=== PATIENT | female | born 1990 | race Two or more races ===

== ENCOUNTER 2024-02-02 12:18 | Emergency (ER) | payer MEDICAID, SELFPAY ==
--- NOTE | 2024-02-02 12:28 | EDNOTE_ITS ---
ED Head Injury RME/HPI General Chief complaint: Head Injury Stated complaint: hit left side of head on metal hook 10 minutes ago Time Seen by Provider: 02/02/24 12:21 Arrival date/time: 02/02/24 12:18 RME / HPI RME / HPI Narrative: This section includes all my notes and documentations, including HPI, PE, and ED course. Moy Eckert MD HPI: 33-year-old female here to be evaluated with head injury at home just prior to arrival. Occurred in the bathroom. When getting up from a bending position, she hit her head on the corner of a towel rack. No loss of consciousness. No headache other than pain around the injured area. No loss of consciousness. No dizziness. No nausea or vomiting. No decreased mental status. No unusual malaise or fatigue. No speech or visual impairment. No loss of power in the arms or legs. No other complaints. ROS: All negative except as documented in HPI. Physical Exam: General: Alert and oriented. No acute distress. HEENT: In the left parietal area, there is a quarter sized hematoma. Conjunctivae and lids clear. EOMI. PERRL. Patent airway. Tympanic membrane normal bilaterally. Neck: Supple. No tenderness. Lungs: No respiratory distress. Chest: No tenderness. Abdomen: Soft and nontender. Back: No tenderness. Skin: Warm and dry. Neuro: Alert and oriented X 3. Cranial Nerves II-XII grossly intact. No peripheral motor deficits. Musculoskeletal: All major joints and bones are not tender with no limited ROM. Discussed potential risks and benefits and alternatives to head CT. Patient declined head CT. Recommended supportive care and expectant management. Based on my best medical judgment, made decision no further evaluation or treatment indicated at this time. Patient understands and agrees to the discharge instructions customized and printed, see below. Discharge instructions from Dr. Eckert: 1. To make sure there is no brain injury, we need head CT. But since you declined, it was not ordered. 2. For the scalp contusion/hematoma (collection of ruptured blood vessels), apply ice for 20 minutes every 2-3 hours today and tomorrow. 3. Ibuprofen and Tylenol as needed. Try to rest, both your brain and physically, for 3 days. 4. See a private doctor on 02/05/2024 for recheck and repeat exam. 5. Seek immediate medical care with severe and persistent headache, persistent vomiting, being extremely drowsy when you should be completely alert and awake, or with any concerns. Moy Eckert MD Related Data Previous Rx's ?Medication ?Instructions ?Recorded acetaminophen 650 mg 650 mg PO Q8H PRN fever or pain 07/23/19 tablet,extended release #30 tabs ibuprofen 600 mg tablet 600 mg PO Q8H PRN fever or pain 07/23/19 #30 tabs aluminum-mag hydroxide-simethicone 10 ml PO QID PRN indigestion 02/06/20 200 mg-200 mg-20 mg/5 mL oral susp #3,000 mL (Maalox Advanced) Allergies Allergy/AdvReac Type Severity Reaction Status Date / Time No Known Allergies Allergy Verified 02/02/24 12:19 Course Quality Measures none Vital Signs Vital signs: Vital Signs Temperature 98.2 F 02/02/24 12:29 Pulse Rate 77 02/02/24 12:29 Respiratory Rate 17 02/02/24 12:29 Blood Pressure 144/84 H 02/02/24 12:29 Pulse Oximetry (%) 98 02/02/24 12:29 Oxygen Delivery Method Room Air 02/02/24 12:29 Head Injury Patient data External records reviewed:: [facility] previous records Clinical information provided by:: patient Social determinants that could affect healthcare access:: none Patient has the following chronic illnesses:: None How is presenting disease/condition affected by chronic disease/condition?: no chronic disease Evaluation data The following diagnostics were reviewed and interpreted by me:: other (specify) (No diagnostic tests ordered) Lab and/or radiology exams considered but not ordered:: None Interpretation Summary: No diagnostic tests ordered Medications / Prescriptions Medications or Prescriptions considered but not ordered:: None Medication administrations:: None Consultations Consultation(s) initiated? (list below): No Diagnosis Differential diagnosis head injury: concussion without loss of consciousness, closed head injury and other (Scalp hematoma) Most likely diagnosis given after review of the tests above:: Scalp hematoma Admission Indicated Admission indicated?: not indicated Explain why admission is indicated or not indicated:: Admission criteria not met Admission Request Was there a request for admission?: No Disposition Plan Disposition Plan: Discharge Discharge Attestation Discharge Attestation: The patient and all family members were given an opportunity to ask questions and understood the discharge instructions. Discharge instructions specifically effects, indications for sooner follow up or return to the emergency department, and the expected course of current diagnosis. Patient condition: Stable Discharge Plan Plan Patient Disposition: HOME (Self Care) Prescriptions/Referrals Prescriptions/Med Rec: No Action acetaminophen 650 mg tablet extended release 650 mg PO Q8H PRN (Reason: fever or pain) Qty: 30 0RF Rx Instructions: swallow whole; do not crush, chew, break, dissolve, cut, or open ibuprofen 600 mg tablet 600 mg PO Q8H PRN (Reason: fever or pain) Qty: 30 0RF Rx Instructions: prn pain / fever alum-mag hydroxide-simeth [Maalox Advanced] 200-200-20 mg/5 mL suspension 10 ml PO QID PRN (Reason: indigestion) Qty: 3000 0RF Rx Instructions: administer between meals and at bedtime Problem List Clinical Impression: Hematoma of scalp, Head injury Patient/Caregiver Discharge Instructions Discharge Activity: activity as tolerated Education Materials: ED Soft Tissue Contusion, ED Head Injury (Adult) Additional Instructions: Discharge instructions from Dr. Eckert: 1. To make sure there is no brain injury, we need head CT. But since you declined, it was not ordered. 2. For the scalp contusion/hematoma (collection of ruptured blood vessels), apply ice for 20 minutes every 2-3 hours today and tomorrow. 3. Ibuprofen and Tylenol as needed. Try to rest, both your brain and physically, for 3 days. 4. See a private doctor on 02/05/2024 for recheck and repeat exam. 5. Seek immediate medical care with severe and persistent headache, persistent vomiting, being extremely drowsy when you should be completely alert and awake, or with any concerns. Print Language: Sami Stand Alone Forms: Ros Award Info., Patient Portal Info Letter
[2024-02-02 12:29] VITALS: BP 144/84; PULSE 77; RESP 17; TEMP 36.8; O2SAT 98; BMI 33.3
== END 2024-02-02 13:00 | disposition home or self-care (01) ==
PROVIDERS: Emergency Provider Emergency Medicine; PCP Family Medicine
DX: S00.03XA Contusion of scalp, initial encounter (principal); W22.8XXA Striking against or struck by other objects, initial encounter
CPT/HCPCS: 99281